=== PATIENT | female | born 1965 | race Caucasian/White ===

== ENCOUNTER → 2023-12-16 13:53 | Outpatient (REF) | payer OTHER, SELFPAY | LOC: WDC 13:53 | PROVIDERS: ATTENDING PHYSICIAN Internal Medicine Medical Oncology; FAMILY PHYSICIAN Nurse Practitioner | DX: R92.8 Other abnormal and inconclusive findings on diagnostic imaging of breast (principal) | CPT/HCPCS: 76642 ==

== ENCOUNTER → 2024-03-26 15:25 | Outpatient (REF) | payer OTHER, SELFPAY | LOC: WDC 15:25 | PROVIDERS: ATTENDING PHYSICIAN Internal Medicine Medical Oncology; FAMILY PHYSICIAN Nurse Practitioner | DX: Z12.31 Encounter for screening mammogram for malignant neoplasm of breast (principal) | CPT/HCPCS: 77063; 77067 ==

== ENCOUNTER → 2024-10-31 10:59 | Outpatient (REF) | payer OTHER, SELFPAY | LOC: WDC 10:59 | PROVIDERS: ATTENDING PHYSICIAN Internal Medicine Medical Oncology | DX: C50.912 Malignant neoplasm of unspecified site of left female breast (principal) | CPT/HCPCS: 76641 ==

== ENCOUNTER → 2024-11-06 11:36 | Outpatient (REF) | payer OTHER, SELFPAY ==
--- NOTE | 2024-11-06 14:04 | OID.BR.INTR ---
[facility] Breast Navigator - Initial
- -
Date of Contact: 11/06/24
Met with patient. Will follow up as needed per protocol.
== END ==
LOC: WDC 11:36
PROVIDERS: ATTENDING PHYSICIAN Internal Medicine Medical Oncology
DX: N63.12 Unspecified lump in the right breast, upper inner quadrant (principal)
CPT/HCPCS: 88305; 19083; 88341; 88360; A4648

== ENCOUNTER → 2024-11-14 16:35 | Outpatient (REF) | payer OTHER, SELFPAY | LOC: MRI 3T 16:35 | PROVIDERS: ATTENDING PHYSICIAN Internal Medicine Medical Oncology; REFERRING PHYSICIAN Surgery | DX: C50.912 Malignant neoplasm of unspecified site of left female breast (principal) | CPT/HCPCS: 77049; A9585 ==

== ENCOUNTER → 2024-12-06 09:45 | Outpatient (REF) | payer OTHER, SELFPAY | LOC: WDC 09:45 | PROVIDERS: ATTENDING PHYSICIAN Surgery | DX: C50.411 Malignant neoplasm of upper-outer quadrant of right female breast (principal) | CPT/HCPCS: 19285; 38792; 76942; A4648; A9541 ==

== ENCOUNTER 2024-12-07 06:13 | Day surgery (SDC) | payer OTHER, SELFPAY ==
[2024-12-03 11:14] LABS: Hematocrit 39.3 % (37.0-47.0); Hemoglobin 13.4 g/dL (12.0-16.0); Mean Corp Hgb Conc. 34.1 g/dL (33.0-37.0); Mean Corpuscular Hgb 33.1 pg (27.0-31.0); Mean Platelet Volume 9.7 fL (7.4-10.4); Platelet Count 207 10^3/uL (130-400); Red Blood Cell Count 4.05 10^6/uL (4.20-5.40); Red Cell Dist. Width 12.1 % (11.5-14.5); White Blood Cell Count 6.7 10^3/uL (4.8-10.8)
[2024-12-03 12:10] LABS: ALT (SGPT) 37 U/L (0-35); AST (SGOT) 35 U/L (14-36); Albumin 4.7 g/dl (3.5-5.0); Alkaline Phosphatase 79 U/L (38-126); Blood Urea Nitrogen 15 mg/dl (7-17); Calcium 9.2 mg/dl (8.4-10.2); Carbon Dioxide 26 mmol/L (22-30); Chloride 99 mmol/L (98-107); Glucose 105 mg/dl (70-99); Potassium 4.4 mmol/L (3.5-5.1); Sodium 135 mmol/L (135-145); Total Bilirubin 0.8 mg/dl (0.2-1.3); Total Protein 7.3 g/dl (6.3-8.2); eGFR > 60.00
[2024-12-03 12:11] LABS: Prealbumin (Transthyretin) 21.8 mg/dl (17.6-36.0)
[2024-12-03 12:23] LABS: Vitamin D, 25-OH*** 52.9 ng/mL (30-80)
[2024-12-03 13:22] VITALS: BMI 31.8
--- NOTE | 2024-12-04 15:22 | PTCARENOTE ---
Abnormal EKG on 12/03/24. Dr. Conti aware. No intervention needed.
[2024-12-07 10:03] VITALS: BP 142/86; BMI 31.8
[2024-12-07] MEDS: TYLENOL 1000 MG PO (10:06)
[2024-12-07] MEDS: NORMOSOL-R/PLASMALYTE-A 1000 IV (10:07)
[2024-12-07] MEDS: LOVENOX 40 MG SC (10:41)
[2024-12-07 13:03] VITALS: BP 121/57
[2024-12-07 13:15] VITALS: BP 141/71
[2024-12-07 13:30] VITALS: BP 134/78
--- NOTE | 2024-12-07 13:32 | W.IMMPOSTOP ---
Surgical Immed Post Op Note
-
Primary Surgeon: Yue
Assisting Surgeon: None
Pre-op Diagnosis: Left breast ca
Post-op Diagnosis: Same
Procedure Performed: Right localized lumpectomy and sentinel lymph node mapping and biopsy
Anesthesia Type: TIVA
Specimen / Cultures: Right lumpectomy, margins, sentinel node
Estimated Blood Loss: 4cc
Complications: None
Operative Findings: Clip and reflector in specimen; neg lymph node
--- NOTE | 2024-12-07 13:33 | OR.RPT ---
Addendum entered and electronically signed by Caitlin Turner MD 12/07/24 13:43:
Synoptic operative report sentinel node biopsy breast cancer
Operation performed with curative intent: Yes
Tracer to ID sentinel nodes in the non-neoadjuvant setting: Radioactive
Tracer to ID sentinel nodes in the neoadjuvant setting: N/A none
All nodes at end of dye filled lymphatic channels removed: N/A
All significantly radioactive nodes were removed: Yes
All palpably suspicious nodes were removed: Yes
Biopsy-proven positive nodes Pedro prior to chemo IDed and removed and: N/AA
Original Note:
Operative Report
Operative Report
Date of operation: 12/26
Surgeon: Yue
Pre-op diagnosis right breast carcinoma
Postop diagnosis: Right breast carcinoma
Procedure: Right localized lumpectomy and sentinel lymph node mapping and biopsy
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 On the day prior to the procedure she presented to the [place] [facility] where Apryl station installer
reflector was placed at the tumor site and technetium radiotracer was injected into breast parenchyma. On the day of surgery she presented to the same-day surgical services unit and was prepped. She verified site and procedure. DVT and antibiotic
prophylaxis were provided and she was taken to the operating room.
In the supine position intravenous sedation was delivered the right breast was prepped and draped in the usual sterile fashion. Appropriate timeout was performed by all staff members. All tissues were anesthetized with 1% lidocaine plain.
Attention was first turned to the axilla where a curvilinear incision was made inferior to the hairline overlying the area of highest external gamma count. Dissection was carried through clavipectoral fascia using the cautery. Using the neoprobe
gamma probe, 1 sentinel node packet was encountered and excised. Feeding vessels to the node were controlled with 3-0 silk tie. Frozen section analysis on the node was negative. After its removal there was a greater than 4 fold reduction of
background count. Hemostasis was verified and Marcaine 0.5% plain was instilled into all tissues. This wound was closed using simple interrupted 3-0 plain on deep intermediate and subcutaneous tissue and skin was closed using running subcuticular
4-0 Monocryl.
Attention was then turned to the lumpectomy where a curvilinear incision was made overlying the area of highest Apryl signal. Dissection was carried down to the appropriate area using the cautery and a wide lumpectomy was performed. Time out of
body was noted and specimen radiography confirmed the presence of clip and reflector within it. Additional margins were harvested for permanent analysis from the posterior, medial, superior, lateral, inferior, and anterior dimensions. These were
oriented as well.
Hemostasis was maintained with the cautery. Marcaine 0.5% plain was instilled in this wound had hemoclips placed in the resection cavity. It was closed in the same manner as the axilla. Surgical glue and sterile compressive dressing was applied.
All sponge needle and instrument counts were correct and the patient was transferred back to the same-day surgical services unit.
([id number])
[2024-12-07 13:45] VITALS: BP 130/77
[2024-12-07 14:00] VITALS: BP 140/80
== END 2024-12-07 14:19 | disposition home or self-care (01) ==
LOC: SDS 06:13
PROVIDERS: ATTENDING PHYSICIAN Surgery
DX: C50.411 Malignant neoplasm of upper-outer quadrant of right female breast (principal); Z17.0 Estrogen receptor positive status [ER+]
CPT/HCPCS: 38525; 19301; 38900; 88305; 88307; 88332; 36415; 76098; 80053; 82306; 84134; 85027; 88331; 88342; 93005

== ENCOUNTER → 2025-03-27 15:32 | Outpatient (REF) | payer OTHER, SELFPAY | LOC: WDC 15:32 | PROVIDERS: ATTENDING PHYSICIAN Internal Medicine Medical Oncology | DX: Z12.31 Encounter for screening mammogram for malignant neoplasm of breast (principal); C50.912 Malignant neoplasm of unspecified site of left female breast | CPT/HCPCS: 77063; 77067 ==